=== PATIENT | female | born 1970 | race Two or more races ===

== ENCOUNTER 2022-07-22 06:00 | Day surgery (SDC) | payer OTHER ==
[~2022-07-22] VITALS: Ht 162.6 cm; Wt 70.3 kg
[2022-07-22] MEDS ORDERED: MORGIDOX100 MG PO (11:45)
[2022-07-22] MEDS ORDERED: NAPR500T14 PO (11:45)
== END 2022-07-22 15:35 | disposition home or self-care (01) ==
LOC: CIR.AMB 06:00
PROVIDERS: ATTEND Obstetrics & Gynecology
DX: N92.0 Excessive and frequent menstruation with regular cycle (principal); N84.0 Polyp of corpus uteri; D25.0 Submucous leiomyoma of uterus; Z91.018 Allergy to other foods; Z20.822 Contact with and (suspected) exposure to COVID-19